=== PATIENT | female | born 1940 | race Two or more races ===

== ENCOUNTER 2020-04-22 16:21 | Inpatient (IN) | payer OTHER, MEDICAID ==
[~2020-04-22] VITALS: Ht 152.4 cm; Wt 61.6 kg
[2020-04-22] VITALS (27 sets, daily range): BP systolic 72–147; BP diastolic 31–66
[2020-04-22] MEDS ORDERED: EPINEPHrine HCL 250 ML IV ONE (17:29)
[2020-04-22] MEDS ORDERED: NOREPINEPHRINE 8 MG/250ML KIT 250 ML IV ONE (17:29)
[2020-04-22] MEDS ORDERED: AMIODARONE 450mg/250ml AE 250 ML IV ONE (17:30)
[2020-04-22] MEDS ORDERED: PHENYLEPHRINE IV 250 ML IV ONE (17:35)
[2020-04-22] MEDS ORDERED: MIDAZOLAM DRIP 50 mg/50mL 50 ML IV SCH (18:00)
[2020-04-22] MEDS ORDERED: PROPOFOL 100 ML IV SCH (18:00)
[2020-04-22] MEDS ORDERED: fentaNYL Drip 2500mCg/250mlNS 250 ML IV ONE (18:08)
[2020-04-22] MEDS: fentaNYL Drip 2500mCg/250mlNS 250 ML IV SCH (18:24)
[2020-04-22] MEDS ORDERED: EPINEPHrine HCL 250 ML IV SCH (18:45)
[2020-04-22] MEDS ORDERED: PHENYLEPHRINE IV 250 ML IV SCH (18:45)
[2020-04-22 19:14] LABS: Basophils # (auto) 0 10 ^3/uL (0-0.2); Eosinophils # (auto) 0 10 ^3/uL (0-0.8); Lymphocytes % (auto) 2.5 % (10.0-50.0); Neutrophils % (auto) 90.7 % (37.0-80.0)
[2020-04-22] MEDS ORDERED: HEPARIN DRIP/D5W 100UNITS/ML 250 ML IV SCH (19:15)
[2020-04-22 19:16] LABS: Basophils % (auto) 0.1 % (0.0-2.0); Eosinophils % (auto) 0.1 % (0.0-7.0); Hematocrit 22.1 % (36.0-46.0); Hemoglobin 7.3 g/dL (12.2-16.2); Lymphocytes # (auto) 0.7 10 ^3/uL (0.4-5.4); Mean Corpuscular Hemoglobin 33.1 pg (28.0-32.0); Mean Corpuscular Hgb Conc. 32.9 g/dL (32.0-36.0); Mean Corpuscular Volume 100.7 fL (80.0-100.0); Monocytes % (auto) 6.6 % (0.0-12.0); Platelet Count (auto) 136 10^3/uL (140-450); Red Cell Distribution Width 13.5 % (11.8-14.3); White Blood Cell 29.8 10^3/uL (4.4-10.8)
[2020-04-22 19:25] LABS: BUN/Creatinine Ratio 7.4; Calcium 7.5 mg/dL (8.5-10.1)
[2020-04-22] MEDS ORDERED: POTASSIUM CHL 20MEQ/100ML 100 ML IV ONE (19:42)
[2020-04-22 19:43] LABS: Potassium 2.9 mmol/L (3.5-5.1)
[2020-04-22] MEDS ORDERED: IOHEXOL 350 MG/ML 100ML IJ ONE (19:44)
[2020-04-22] MEDS ORDERED: ASPirin 81 mg TAB PO ONE (20:00)
[2020-04-22] MEDS ORDERED: POTASSIUM CHL 20MEQ/100ML 100 ML IV SCH (20:00)
[2020-04-22 20:38] LABS: INR 2.19 (0.9-1.15)
[2020-04-22] MEDS: NOREPINEPHRINE 8 MG/250ML KIT 250 ML IV SCH (21:46)
[2020-04-22] MEDS: AMIODARONE 450mg/250ml AE 250 ML IV SCH (22:04)
[2020-04-23] VITALS (105 sets, daily range): BP systolic 77–137; BP diastolic 33–74
[2020-04-23] MEDS ORDERED: DEXTROSE (50%) 50ML SYRG IV PRN (00:15)
[2020-04-23] MEDS: InsuLIN REG 1unit/0.01ml Soln (100units/ml) SC SCH ×3 (00:31→12:05)
[2020-04-23] MEDS: ACCU-CHEK COMFORT CURVE STRIP VI SCH ×4 (00:31→17:44)
[2020-04-23] MEDS: SODIUM CHLORIDE 0.9% 1,000 ML IV SCH ×4 (00:35→20:15)
[2020-04-23] MEDS ORDERED: SODIUM BICARBONATE 8.4 % INJ 50ML VIAL IV ONE (02:00)
[2020-04-23] MEDS: NOREPINEPHRINE 8 MG/250ML KIT 250 ML IV SCH ×2 (02:18→08:21)
[2020-04-23 05:16] LABS: INR 2.73 (0.9-1.15)
[2020-04-23 05:36] LABS: Partial Thromboplastin Time 115.6 sec (23.0-31.2)
[2020-04-23] MEDS: AMIODARONE 450mg/250ml AE 250 ML IV SCH ×2 (08:21→22:34)
[2020-04-23 08:32] LABS: Hematocrit 25.3 % (36.0-46.0); Hemoglobin 8.4 g/dL (12.2-16.2); Mean Corpuscular Hemoglobin 31.8 pg (28.0-32.0); Mean Corpuscular Hgb Conc. 33.3 g/dL (32.0-36.0); Mean Corpuscular Volume 95.5 fL (80.0-100.0); Platelet Count (auto) 122 10^3/uL (140-450); Red Blood Cells 2.65 10^6/uL (4.0-5.20); Red Cell Distribution Width 14.3 % (11.8-14.3); White Blood Cell 26.6 10^3/uL (4.4-10.8)
[2020-04-23 08:34] LABS: Basophils % (manual) 0 (0.0-2.0); Blast Cells 0; Eosinophils % (manual) 0 (0-7); Metamyelocytes % 0; Myelocytes % 0; Promyelocytes % 0; Reactive Lymphocytes 0
[2020-04-23 09:01] LABS: Calcium 7.2 mg/dL (8.5-10.1); Potassium 4.1 mmol/L (3.5-5.1)
[2020-04-23 09:22] LABS: BUN/Creatinine Ratio 10.3; Bilirubin, Total 1.3 mg/dL (0.2-1.0); Total Protein 4.5 g/dL (6.4-8.2)
[2020-04-23] MEDS ORDERED: VANCOMYCIN PER PHARMACY 0 MG IV SCH (10:15)
[2020-04-23] MEDS ORDERED: PIPERACILLIN-TAZOB 3.375GM 100 ML IV ONE (10:15)
[2020-04-23] MEDS: ASPirin 81 mg TAB PO SCH (10:16)
[2020-04-23 11:02] LABS: INR 2.21 (0.9-1.15); Partial Thromboplastin Time 39.3 sec (23.0-31.2)
[2020-04-23] MEDS: HEPARIN DRIP/D5W 100UNITS/ML 250 ML IV SCH ×2 (11:45→20:48)
[2020-04-23 11:59] LABS: Band Neutrophils % (manual) 17; Lymphocytes % (manual) 4 (10.0-50.0); Monocytes % (manual) 3 (0-12)
[2020-04-23] MEDS ORDERED: VANCOMYCIN 750mg/250ml 250 ML IV ONE (14:00)
[2020-04-23] MEDS ORDERED: PIPERACILLIN-TAZOB 3.375GM 100 ML IV SCH (16:00)
[2020-04-23] MEDS: NOREPINEPHRINE BITARTRATE 16 MG in SODIUM CHL 0.9% 250 ML IV SCH (16:21)
[2020-04-23] MEDS: fentaNYL Drip 2500mCg/250mlNS 250 ML IV SCH (18:00)
[2020-04-23 18:48] LABS: INR 1.89 (0.9-1.15)
[2020-04-23] MEDS ORDERED: HEPARIN SODIUM (PORCINE) 5000 UNITS/ML 1ML VIAL ONE (20:31)
[2020-04-23] MEDS ORDERED: HEPARIN SODIUM (PORCINE) 5000 UNITS/ML 1ML VIAL IV ONE (20:45)
[2020-04-23] MEDS: MEROPENEM 500MG IVPB 50 ML IV SCH (21:30)
[2020-04-23] MEDS ORDERED: ATORVASTATIN 20 MG TAB NG SCH (22:00)
[2020-04-24] VITALS (98 sets, daily range): BP systolic 29–124; BP diastolic -11–96
[2020-04-24] MEDS: ACCU-CHEK COMFORT CURVE STRIP VI SCH ×4 (00:22→18:16)
[2020-04-24] MEDS: SODIUM CHLORIDE 0.9% 1,000 ML IV SCH (01:37)
[2020-04-24 04:30] LABS: Basophils # (auto) 0 10 ^3/uL (0-0.2); Basophils % (auto) 0.1 % (0.0-2.0); Eosinophils # (auto) 0 10 ^3/uL (0-0.8); Eosinophils % (auto) 0.2 % (0.0-7.0); Hemoglobin 8.4 g/dL (12.2-16.2); Platelet Count (auto) 115 10^3/uL (140-450)
[2020-04-24 04:32] LABS: Hematocrit 25.6 % (36.0-46.0); Lymphocytes # (auto) 1.1 10 ^3/uL (0.4-5.4); Lymphocytes % (auto) 4.9 % (10.0-50.0); Mean Corpuscular Hemoglobin 31.9 pg (28.0-32.0); Mean Corpuscular Hgb Conc. 32.7 g/dL (32.0-36.0); Mean Corpuscular Volume 97.6 fL (80.0-100.0); Monocytes # (auto) 1.3 10 ^3/uL (0-1.3); Monocytes % (auto) 6.2 % (0.0-12.0); Neutrophils # (auto) 19.2 10 ^3/uL (1.6-8.6); Neutrophils % (auto) 88.6 % (37.0-80.0); Nucleated Red Blood Cells % 0.4 %; Red Blood Cells 2.62 10^6/uL (4.0-5.20); Red Cell Distribution Width 14.7 % (11.8-14.3); White Blood Cell 21.6 10^3/uL (4.4-10.8)
[2020-04-24 04:51] LABS: Potassium 4.2 mmol/L (3.5-5.1)
[2020-04-24 04:53] LABS: INR 1.8 (0.9-1.15)
[2020-04-24 04:57] LABS: Partial Thromboplastin Time 86.2 sec (23.0-31.2)
[2020-04-24] MEDS: HEPARIN DRIP/D5W 100UNITS/ML 250 ML IV SCH (04:59)
[2020-04-24 05:12] LABS: Albumin 2.3 g/dL (3.4-5.0); BUN/Creatinine Ratio 11.4; Bilirubin, Total 1.8 mg/dL (0.2-1.0); Calcium 7.5 mg/dL (8.5-10.1); Total Protein 4.8 g/dL (6.4-8.2)
[2020-04-24 05:37] LABS: Folate (Folic Acid) 15.27 ng/mL (5.38-24)
[2020-04-24] MEDS: InsuLIN REG 1unit/0.01ml Soln (100units/ml) SC SCH ×4 (06:13→18:00)
[2020-04-24] MEDS: NOREPINEPHRINE BITARTRATE 16 MG in SODIUM CHL 0.9% 250 ML IV SCH ×2 (07:51→15:53)
[2020-04-24] MEDS ORDERED: VANCOMYCIN 500 MG in D5W 5% 100 ML IV ONE (09:39)
[2020-04-24] MEDS: fentaNYL Drip 2500mCg/250mlNS 250 ML IV SCH (10:34)
[2020-04-24] MEDS: MEROPENEM 500MG IVPB 50 ML IV SCH ×2 (10:39→22:54)
[2020-04-24] MEDS: ASPirin 81 mg TAB PO SCH (10:42)
[2020-04-24] MEDS: AMIODARONE 450mg/250ml AE 250 ML IV SCH (10:42)
[2020-04-24 14:42] LABS: INR 1.94 (0.9-1.15); Partial Thromboplastin Time 49.1 sec (23.0-31.2)
[2020-04-24] MEDS ORDERED: FUROSEMIDE 100 MG/10ML VIAL IV ONE (15:00)
[2020-04-24] MEDS ORDERED: FUROSEMIDE INJECTION 100 MG in SODIUM CHL 0.9% 100 ML IV SCH (15:00)
[2020-04-24] MEDS ORDERED: LIDOCAINE 4MG/ML IV SOLN 500 ML IV ONE (16:59)
[2020-04-24] MEDS ORDERED: LIDOCAINE 4MG/ML IV SOLN 500 ML IV SCH (17:00)
[2020-04-24] MEDS: PHENYLEPHRINE IV 250 ML IV SCH ×2 (18:25→18:30)
[2020-04-24] MEDS ORDERED: SODIUM BICARBONATE 8.4 % INJ 50ML VIAL IV ONE ×4 (19:30→22:27)
[2020-04-24] MEDS ORDERED: SODIUM BICARBONATE 50ML VIAL 150 ML in SOD CHL 0.45% 1,000 ML IV SCH (19:30)
[2020-04-24] MEDS ORDERED: SODIUM BICARBONATE 8.4% INJ 50ML SYRINGE ONE ×2 (19:33→22:27)
[2020-04-24] MEDS ORDERED: SODIUM BICARBONATE 50ML VIAL 50 ML in SOD CHL 0.45% 1,000 ML IV SCH (19:45)
[2020-04-24] MEDS ORDERED: VASOPRESSIN 20 UNIT/ML ONE (20:16)
[2020-04-24] MEDS ORDERED: EPINEPHrine HCL 250 ML IV ONE (20:37)
[2020-04-24 20:50] LABS: BUN/Creatinine Ratio 10.9; Calcium 6.8 mg/dL (8.5-10.1)
[2020-04-24] MEDS ORDERED: EPINEPHrine HCL 250 ML IV SCH (21:15)
[2020-04-24] MEDS ORDERED: VASOPRESSIN 50 UNITS in D5W 5% 247.5 ML IV SCH (21:15)
[2020-04-24 22:01] LABS: INR 2.94 (0.9-1.15)
[2020-04-24 22:02] LABS: Partial Thromboplastin Time 107.9 sec (23.0-31.2)
[2020-04-24] MEDS ORDERED: ALBUMIN 5% 250 ML IV ONE (22:28)
[2020-04-24] MEDS ORDERED: HEPARIN DRIP/D5W 100UNITS/ML 250 ML IV SCH (23:05)
[2020-04-25] VITALS: BP 42/38
[2020-04-25] MEDS ORDERED: NOREPINEPHRINE 8 MG/250ML KIT 250 ML IV ONE (00:15)
[2020-04-25] MEDS ORDERED: NOREPINEPHRINE BITARTRATE 2 ML IV ONE (00:18)
[2020-04-25 00:30] VITALS: BP 28/24
== END 2020-04-25 00:49 | disposition expired | DRG 871 ==
LOC: ICU WEST 17:26
PROVIDERS: ADMIT Internal Medicine; ATTEND Internal Medicine
PROC: 5A1945Z Respiratory Ventilation, 24-96 Consecutive Hours (ICD-10-PCS; principal; 2020-04-22)
PROC: 0BH17EZ Insertion of Endotracheal Airway into Trachea, Via Natural or Artificial Opening (ICD-10-PCS; 2020-04-22)
PROC: 30230N1 Transfusion of Nonautologous Red Blood Cells into Peripheral Vein, Open Approach (ICD-10-PCS; 2020-04-23)
PROC: 02HV33Z Insertion of Infusion Device into Superior Vena Cava, Percutaneous Approach (ICD-10-PCS; 2020-04-24)
PROC: 03HY32Z Insertion of Monitoring Device into Upper Artery, Percutaneous Approach (ICD-10-PCS; 2020-04-24)
PROC: B548ZZA Ultrasonography of Superior Vena Cava, Guidance (ICD-10-PCS; 2020-04-24)
PROC: 4A133B1 Monitoring of Arterial Pressure, Peripheral, Percutaneous Approach (ICD-10-PCS; 2020-04-24)
DX: A41.9 Sepsis, unspecified organism (principal); I21.4 Non-ST elevation (NSTEMI) myocardial infarction; J18.9 Pneumonia, unspecified organism; J96.01 Acute respiratory failure with hypoxia; R65.21 Severe sepsis with septic shock; G93.41 Metabolic encephalopathy; N17.0 Acute kidney failure with tubular necrosis; S22.20XA Unspecified fracture of sternum, initial encounter for closed fracture; E87.2 Acidosis; G93.1 Anoxic brain damage, not elsewhere classified; J98.11 Atelectasis; R57.0 Cardiogenic shock; I49.3 Ventricular premature depolarization; R00.0 Tachycardia, unspecified; E11.40 Type 2 diabetes mellitus with diabetic neuropathy, unspecified; D64.9 Anemia, unspecified; D69.6 Thrombocytopenia, unspecified; I25.5 Ischemic cardiomyopathy; E78.5 Hyperlipidemia, unspecified; E87.5 Hyperkalemia; G93.89 Other specified disorders of brain; N14.1 Nephropathy induced by other drugs, medicaments and biological substances; T50.8X5A Adverse effect of diagnostic agents, initial encounter; F17.200 Nicotine dependence, unspecified, uncomplicated; I25.10 Atherosclerotic heart disease of native coronary artery without angina pectoris; I45.10 Unspecified right bundle-branch block; I46.9 Cardiac arrest, cause unspecified; I48.91 Unspecified atrial fibrillation; I49.01 Ventricular fibrillation; I51.7 Cardiomegaly; I70.0 Atherosclerosis of aorta; W01.0XXA Fall on same level from slipping, tripping and stumbling without subsequent striking against object, initial encounter; Z79.82 Long term (current) use of aspirin; Z79.899 Other long term (current) drug therapy; Z79.891 Long term (current) use of opiate analgesic; Z79.01 Long term (current) use of anticoagulants; Y84.8 Other medical procedures as the cause of abnormal reaction of the patient, or of later complication, without mention of misadventure at the time of the procedure
CPT/HCPCS: 36415; 36600; 70450; 71045; 71275; 80048; 80053; 80202; 82607; 82746; 82805; 82962; 83735; 84443; 84478; 84484; 85007; 85025; 85027; 85610; 85730; 86850; 86900; 86901; 86920; 87070; 87081; 87205; 93005; 93306; 94003; 95819; A4618; G0378; J0171; J1815; J2185; J2543; J3480; J7060